=== PATIENT | female | born 1930 | race Caucasian/White ===

== ENCOUNTER → 2017-06-01 | Outpatient (CLI) | payer OTHER ==
[~2017-06-01] MED LIST: ALEN70TA4 PO; ASPEC325 PO; ATEN50TA8 PO; CHOL100010 PO; DOCU100C31 PO; LANS15CA27 PO; LSN20 PO; OXYC-409 PO; REDCAP2 PO
== END | disposition home or self-care (01) ==
LOC: C.RDSM 14:30
PROVIDERS: ATTEND Physical Medicine & Rehabilitation Sports Medicine
DX: Z96.659 Presence of unspecified artificial knee joint (principal); M25.561 Pain in right knee